=== PATIENT | female | born 1995 | race Caucasian/White ===

== ENCOUNTER 2017-04-04 13:01 | Emergency (ER) | payer BC ==
[~2017-04-04] VITALS: Ht 165.1 cm; Wt 69.1 kg
[2017-04-04 13:03] VITALS: TEMP 98.2
[2017-04-04] MEDS ORDERED: LAMICTAL 100MG100 MG PO (13:07)
[2017-04-04] MEDS ORDERED: ABILIFY5 MG PO (13:07)
[2017-04-04] MEDS ORDERED: AMBIEN 10MG10 MG PO (13:08)
[2017-04-04] MEDS ORDERED: VYVANSE70 MG PO (13:08)
[2017-04-04] MEDS ORDERED: MIRENA52 MG (13:08)
[2017-04-04] MEDS ORDERED: DYNACIN100 M1 PO (13:08)
[2017-04-04 13:38] LABS: PH 5 (5-8); URINE APPEARANCE Clear; URINE BACTERIA None Seen /hpf; URINE BILIRUBIN Negative (NEGATIVE); URINE BLOOD Negative (NEGATIVE); URINE COLOR Yellow; URINE GLUCOSE Negative (NEGATIVE); URINE KETONE Negative (NEGATIVE); URINE RBC 0-2 /hpf; URINE UROBILINOGEN Negative (NEGATIVE); URINE WBC 0-2 /hpf
[2017-04-04 13:51] LABS: BASO % 0.4 % (0.0-2.0); EOS # 0.2 (0.0-0.7); EOS % 2.7 % (0-4.0); GRAN # 4.1 (1.4-6.5); GRAN % 60.4 % (42.2-75.2); LYMPH # 1.9 (1.2-3.4); LYMPH % 27.7 % (20.0-51.0); MEAN CELL VOLUME 94 fl (80.0-95.0); MEAN CORPUSCULAR HGB CONC 32 g/dl (33.0-37.0); MEAN PLATELET VOLUME 10.4 fl (7.4-10.4); MONO # 0.6 (0.1-0.6); MONO % 8.4 % (1.7-9.3); PLATELET COUNT 192 K/mm3 (130-400); RED BLOOD COUNT 3.64 M/mm3 (4.10-5.30); REDCELL DISTRIBUTION WIDTH-CV 12.8 % (11.5-14.5); WHITE BLOOD COUNT 6.8 K/mm3 (4.8-10.8)
[2017-04-04 13:52] LABS: HEMATOCRIT 34.3 % (35.0-45.0); HEMOGLOBIN 11.1 g/dl (12.0-15.0); MEAN CORPUSCULAR HEMOGLOBIN 30 pg (26.0-32.0)
[2017-04-04 14:04] LABS: ADJUSTED CALCIUM 8.6 mg/dL (8.4-10.2); BILIRUBIN,TOTAL 0.5 mg/dL (0.0-1.0); CALCIUM 8.6 mg/dL (8.4-10.2); CREATININE, serum 0.8 mg/dL (0.52-1.25); POTASSIUM 3.8 mmol/L (3.4-5.0); TOTAL PROTEIN 6.6 gm/dL (6.4-8.2)
[2017-04-04] MEDS ORDERED: NORCO 325 MG-51 TAB PO (15:34)
[2017-04-04 15:43] VITALS: BP 120/64; PULSE 80
== END 2017-04-04 15:49 | disposition home or self-care (01) ==
LOC: COL.ER 13:01
PROVIDERS: Emergency Medicine
DX: N83.202 Unspecified ovarian cyst, left side (principal); N83.201 Unspecified ovarian cyst, right side; Z97.5 Presence of (intrauterine) contraceptive device; R10.32 Left lower quadrant pain; R11.0 Nausea; F90.9 Attention-deficit hyperactivity disorder, unspecified type; F31.9 Bipolar disorder, unspecified
CPT/HCPCS: J1885; J2405; J7030

== ENCOUNTER 2018-07-17 14:07 | Outpatient (RCR) | payer OTHER ==
[~2018-07-17 14:07] MED LIST: ABILIFY5 MG PO; AMBIEN 10MG10 MG PO; DYNACIN100 M1 PO; LAMICTAL 100MG100 MG PO; MIRENA52 MG; NORCO 325 MG-51 TAB PO; VYVANSE70 MG PO
== END 2018-10-15 | disposition home or self-care (01) ==
LOC: WSOH
DX: S16.1XXA Strain of muscle, fascia and tendon at neck level, initial encounter (principal); W20.8XXA Other cause of strike by thrown, projected or falling object, initial encounter; Y92.59 Other trade areas as the place of occurrence of the external cause; Y99.0 Civilian activity done for income or pay; Z79.899 Other long term (current) drug therapy